=== PATIENT | male | born 1940 | race Caucasian/White ===

== ENCOUNTER → 2023-05-10 | Outpatient (CLI) | payer OTHER | LOC: M PLARAD 09:51 | DX: K76.89 Other specified diseases of liver (principal); N28.1 Cyst of kidney, acquired ==

== ENCOUNTER → 2023-08-05 | Outpatient (REF) | payer OTHER | LOC: M SFHCDERM 18:29 | PROVIDERS: ATTEND Nurse Practitioner Family | DX: D04.62 Carcinoma in situ of skin of left upper limb, including shoulder (principal) ==

== ENCOUNTER → 2024-06-02 | Outpatient (CLI) | payer OTHER ==
[~2024-06-02] MED LIST: ALLO100T; ASPI81TA26 PO; ATOR80TA59; CLOP75TA2; EZET10TA21; FISH1CAP26 PO; FURO40TA2; GABA-284; GARL500C6 PO; HYDR-3713; INSU100I16; ISOS1TAB36; METO1TAB7; NITR0.4S14; PANT40TA29; RANO500T2; STOO100C30 PO; TAMS1CAP17; TOUJ1.2I
== END ==
LOC: M PLARAD 11:20
PROVIDERS: ATTEND Internal Medicine Medical Oncology
DX: C22.0 Liver cell carcinoma (principal)
CPT/HCPCS: 78815; A9552